=== PATIENT | female | born 1985 | race Asian ===

== ENCOUNTER 2016-06-23 18:15 | Emergency (ER) | payer OTHER ==
[~2016-06-23] VITALS: Ht 160 cm; Wt 72.6 kg
[2016-06-23 18:29] VITALS: TEMP 98.3
[2016-06-23 19:12] LABS: PLATELET COUNT 192 K/uL (152-353)
[2016-06-23 19:22] LABS: POTASSIUM 3.6 mmol/L (3.6-5.2); SODIUM 139 mmol/L (136-145)
[2016-06-23 20:03] VITALS: BP 128/82
== END 2016-06-23 19:58 | disposition home or self-care (01) ==
LOC: ED 18:15
PROVIDERS: Emergency Medicine
DX: R11.2 Nausea with vomiting, unspecified (principal)
CPT/HCPCS: 36415; 80053; 81000; 81025; 84702; 85027; 96374; 99284; J2405

== ENCOUNTER 2017-01-07 02:33 | Emergency (ER) | payer OTHER ==
[~2017-01-07] VITALS: Ht 160 cm; Wt 81.6 kg
[2017-01-07 03:13] VITALS: BP 143/91; TEMP 98.8
== END 2017-01-07 03:16 | disposition home or self-care (01) ==
LOC: ED 02:33
DX: K02.9 Dental caries, unspecified (principal); K04.7 Periapical abscess without sinus; R68.84 Jaw pain
CPT/HCPCS: 96372; 99283; J0696

== ENCOUNTER 2017-01-10 | Emergency (ER) | payer OTHER ==
[~2017-01-10] VITALS: Ht 160 cm; Wt 79.4 kg
[2017-01-10 00:16] VITALS: BP 121/84; TEMP 98.4
[2017-01-10] MEDS ORDERED: PENI500T14 PO (00:28)
== END 2017-01-10 00:37 | disposition home or self-care (01) ==
LOC: ED
DX: K08.89 Other specified disorders of teeth and supporting structures (principal)
CPT/HCPCS: 99281